=== PATIENT | male | born 1960 | race Caucasian/White ===

== ENCOUNTER 2018-01-10 06:35 | Day surgery (SDC) | payer BC ==
[2018-01-06 13:41] VITALS: BMI 25.4
[~2018-01-10 06:35] MED LIST: ALPRAZolam 0.25 MG TAB PO PRN; ALPRAZolam 0.5 MG TAB PO PRN; ASPIRIN 325 MG TAB PO STA; ATORVASTATIN 80 MG TAB PO STA; NITROGLYCERIN SL TABS 0.4 MG TAB SUBLINGUAL PRN; SODIUM CHLORIDE 0.9% 1,000 ML in EMPTY BAG 1 BAG IV ONE
[2018-01-10 06:58] LABS: Glucose,Whole Blood 103 mg/dL (75-99)
[2018-01-10 07:05] VITALS: RESP 18
[2018-01-10] MEDS ORDERED: HEPARIN SODIUM 1,000 UN/ML (10ML VL) ONE (07:28)
[2018-01-10] MEDS ORDERED: MIDAZOLAM 2 MG/2 ML VIAL ONE (07:28)
[2018-01-10] MEDS ORDERED: VERAPAMIL 2.5 MG/ML 2 ML AMP ONE (07:28)
[2018-01-10] MEDS ORDERED: fentaNYL (PF) 50 MCG/ML 2 ML AMP ONE (07:28)
[2018-01-10] MEDS ORDERED: MIDAZOLAM 2 MG/2 ML VIAL IV ONE (07:36)
[2018-01-10] MEDS ORDERED: fentaNYL (PF) 50 MCG/ML 2 ML AMP IV ONE (07:41)
[2018-01-10] MEDS ORDERED: LIDOCAINE 2% INJ 20 MG/ML SQ ONE (07:43)
[2018-01-10] MEDS ORDERED: VERAPAMIL SYRINGE (5 MG/10 ML) INTRAARTER ONE (07:45)
[2018-01-10] MEDS ORDERED: IOPAMIDOL-370 125ML BTL INJ ONE (07:59)
[2018-01-10] MEDS ORDERED: RX INFO: IV CONTRAST WAS GIVEN 1 EACH MISC MISCELLANE PRN (08:02)
[2018-01-10] MEDS ORDERED: SODIUM CHLORIDE 0.9% 1,000 ML IV SCH (08:15)
[2018-01-10 08:23] VITALS: TEMP 98
--- NOTE | 2018-01-10 08:33 | CC ---
CARDIAC CATHETERIZATION REPORT DATE OF SERVICE: 01/10/2018 PERFORMING PHYSICIAN: Igor Antunez MD, industrial locomotive operator. PROCEDURE PERFORMED: 1. Selective right and left coronary angiogram. 2. Left heart catheterization. INDICATION: This is a pleasant 57-year-old gentleman who sees Dr. Cobb at [place], who was experiencing symptoms of chest discomfort and underwent a stress test that came in to be unremarkable. He does have hypertension and dyslipidemia. The patient was quite concerned about his symptoms and he wanted to undergo a heart catheterization. APPROACH: Right radial artery. COMPLICATION: None. LEVEL OF SEDATION: Moderate with sedation length of 15 minutes. PROCEDURE DESCRIPTION: After obtaining an informed consent, the patient was brought to cardiac sanitation laborer. The right common femoral artery was cannulated using micropuncture technique, and the micropuncture wire passed easily then I placed a 6-[place] sheath in the right radial artery. I gave the patient 2 mg of verapamil IA and 10,000 units of heparin IV. I did perform selective right and left coronary angiogram using JR4 and JL3.5 catheters. Left heart catheterization was performed using 5-[place] pigtail catheter. The procedure was completed without any complication. SELECTIVE CORONARY ANGIOGRAM: 1. The RCA, is a large caliber vessel, is a tortuous vessel, and a dominant vessel. It is angiographically normal. Distally bifurcates into PDA and PLV branches both are angiographically normal. 2. The left main is angiographically normal. It bifurcates into left circumflex, ramus intermedius, and left anterior descending artery. 3. The left circumflex is a large caliber vessel. It is a nondominant vessel. The proximal circ is angiographically normal and the mid circ and distal circ are angiographically normal as well. 4. The ramus intermedius is a large caliber vessel and bifurcates into 2 separate branches. The ramus intermedius which works as a OM 1 seems to be angiographically normal. 5. The LAD: The proximal LAD is angiographically normal. The mid LAD is normal and gives rise into a medium-sized diagonal branch which seems to be angiographically normal. The LAD distally is angiographically normal and reached the apex. HEMODYNAMICS: The left ventricular end-diastolic pressure was 16 mmHg and no gradient was identified across the aortic valve. CONCLUSION: 1. Normal coronary angiogram. 2. Normal left ventricular end-diastolic pressure. POSTPROCEDURE MANAGEMENT: Maximize medical treatment and follow up with the patient. PAULA / MAIKN: [id number] /
--- NOTE | 2018-01-10 09:09 | LTR ---
January 10, 2018 Dr. Ulises Cobb [place], [place] Re: Pankaj Rodas Dear Dr. Cobb: Mr. Pankaj Rodas underwent a heart catheterization and that revealed normal coronaries. I want to thank you for allowing me to participate in his care and please do not hesitate to call if you have any question or concern. Sincerely, MD PAULA Hutton / ADONIS: [id number] /
[2018-01-10 09:42] VITALS: PULSE 76
[2018-01-10 10:11] VITALS: BP 132/77
== END 2018-01-10 12:15 | disposition home or self-care (01) ==
LOC: CATHCVL 06:35
PROVIDERS: ATTEND Internal Medicine Interventional Cardiology
DX: I20.0 Unstable angina (principal); I10 Essential (primary) hypertension; E78.5 Hyperlipidemia, unspecified; K90.0 Celiac disease
CPT/HCPCS: 93458; C1769; C1894; J2001; J2250; J3010; J1644; Q9967